=== PATIENT | male | born 1950 | race Asian ===

== ENCOUNTER 2017-02-25 16:30 | Inpatient (IN) | payer OTHER ==
[2017-02-25] VITALS (10 sets, daily range): BP systolic 113–195; BP diastolic 91–132; TEMP 97–97.7; Ht 170.2 cm; Wt 101.7 kg
[~2017-02-25] VITALS: Ht 170.2 cm; Wt 101.7 kg
[~2017-02-25 16:30] MED LIST: ASPIRIN 81 LOW81 MG PO; CARV12.5 PO; CELEXA10 MG PO; CLON0.3T7 PO; CORRECTOL100 MG PO; DILT30TA24 PO; DONE5TAB PO; HYDR100TA PO; INTEGRA PO; ISOS20TA11 PO; LIPITOR10 MG PO; NITROSTAT0.4 MG SL; SENNA-S1 TAB PO; TRAZ50TA36 PO; TUMS500 MG PO; VITAMIN D400 UNI1 PO
[2017-02-25 18:39] LABS: PLATELET COUNT 299 K/uL (142-355)
[2017-02-25] MEDS ORDERED: PROTONIX20 MG PO (23:01)
[2017-02-25] MEDS ORDERED: METAMUCIL0.52 GM OR (23:03)
[2017-02-25] MEDS ORDERED: NEURONTIN 100M100 MG OR (23:04)
[2017-02-25] MEDS ORDERED: LEXAPRO20 MG OR (23:05)
[2017-02-25] MEDS ORDERED: ABILIFY5 MG OR (23:06)
[2017-02-25] MEDS ORDERED: NAMENDA10 MG OR (23:06)
[2017-02-25] MEDS ORDERED: DIVALPROEX500 M1 OR (23:07)
[2017-02-25] MEDS ORDERED: ALUMSUS6 PO (23:08)
[2017-02-25] MEDS ORDERED: TYLENOL325 MG OR ×2 (23:09→23:12)
[2017-02-25] MEDS ORDERED: MAGNSUS68 PO (23:10)
[2017-02-25] MEDS ORDERED: LANTISEPTI2 EX (23:11)
[2017-02-25] MEDS ORDERED: ZIPR20IN IM (23:12)
[2017-02-25] MEDS ORDERED: TRAM50TA PO (23:13)
[2017-02-25] MEDS ORDERED: ARTIFI TEARS OP (23:14)
[2017-02-26] VITALS (28 sets, daily range): BP systolic 74–165; BP diastolic 46–131; TEMP 95.7–98.2
[2017-02-26 07:22] LABS: PLATELET COUNT 295 K/uL (142-355)
[2017-02-26 07:26] LABS: POTASSIUM 5.2 mmol/L (3.6-5.2)
[2017-02-27] VITALS (25 sets, daily range): BP systolic 65–177; BP diastolic 32–111; TEMP 95.4–101.4
[2017-02-27 08:34] LABS: PLATELET COUNT 311 K/uL (142-355)
[2017-02-27 10:39] LABS: POTASSIUM 6.3 mmol/L (3.6-5.2)
[2017-02-28] VITALS (22 sets, daily range): BP systolic 99–170; BP diastolic 58–119; TEMP 98.4–104.7
[2017-02-28 06:39] LABS: PLATELET COUNT 273 K/uL (142-355)
[2017-02-28 06:46] LABS: POTASSIUM 4.8 mmol/L (3.6-5.2)
[2017-03-01] VITALS (23 sets, daily range): BP systolic 66–145; BP diastolic 48–118; TEMP 97.4–98.4
[2017-03-01 06:43] LABS: PLATELET COUNT 255 K/uL (142-355)
[2017-03-01 07:27] LABS: POTASSIUM 5.1 mmol/L (3.6-5.2)
[2017-03-02] VITALS (21 sets, daily range): BP systolic 97–153; BP diastolic 50–123; TEMP 97.5–97.9
[2017-03-02 06:42] LABS: POTASSIUM 5.4 mmol/L (3.6-5.2)
[2017-03-02 09:08] LABS: PLATELET COUNT 218 K/uL (142-355)
[2017-03-03] VITALS (23 sets, daily range): BP systolic 101–160; BP diastolic 67–138; TEMP 97.2–97.9
[2017-03-03 08:02] LABS: PLATELET COUNT 189 K/uL (142-355)
[2017-03-03 08:35] LABS: POTASSIUM 4.4 mmol/L (3.6-5.2)
[2017-03-04] VITALS (11 sets, daily range): BP systolic 92–178; BP diastolic 64–101; TEMP 97.7–98
[2017-03-04 06:13] LABS: PLATELET COUNT 171 K/uL (142-355)
[2017-03-04 06:24] LABS: POTASSIUM 3.6 mmol/L (3.6-5.2)
[2017-03-05] VITALS (16 sets, daily range): BP systolic 90–1124; BP diastolic 11–105; TEMP 97–97.8
[2017-03-05 06:26] LABS: POTASSIUM 3.6 mmol/L (3.6-5.2)
[2017-03-05 06:44] LABS: PLATELET COUNT 151 K/uL (142-355)
[2017-03-06] VITALS (18 sets, daily range): BP systolic 89–149; BP diastolic 59–118; TEMP 97.6–97.8
[2017-03-06 06:34] LABS: POTASSIUM 3.7 mmol/L (3.6-5.2)
[2017-03-06 07:11] LABS: PLATELET COUNT 150 K/uL (142-355)
== END 2017-03-06 16:20 | DRG 870 ==
LOC: ICU 16:30
PROVIDERS: Emergency Medicine; ADMIT Internal Medicine
PROC: 5A1955Z Respiratory Ventilation, Greater than 96 Consecutive Hours (ICD-10-PCS; principal; 2017-02-26)
PROC: 0BH17EZ Insertion of Endotracheal Airway into Trachea, Via Natural or Artificial Opening (ICD-10-PCS; 2017-02-26)
PROC: 05HM33Z Insertion of Infusion Device into Right Internal Jugular Vein, Percutaneous Approach (ICD-10-PCS; 2017-02-28)
PROC: 5A1D00Z (ICD-10-PCS; 2017-03-02)
PROC: 30243N1 Transfusion of Nonautologous Red Blood Cells into Central Vein, Percutaneous Approach (ICD-10-PCS; 2017-03-02)
PROC: 5A1D00Z (ICD-10-PCS; 2017-03-03)
PROC: 5A1D00Z (ICD-10-PCS; 2017-03-06)
DX: A41.89 Other specified sepsis (principal); J96.02 Acute respiratory failure with hypercapnia; J15.6 Pneumonia due to other Gram-negative bacteria; J96.01 Acute respiratory failure with hypoxia; N17.8 Other acute kidney failure; I12.0 Hypertensive chronic kidney disease with stage 5 chronic kidney disease or end stage renal disease; N18.5 Chronic kidney disease, stage 5; E87.4 Mixed disorder of acid-base balance; K92.2 Gastrointestinal hemorrhage, unspecified; J90 Pleural effusion, not elsewhere classified; T17.990A Other foreign object in respiratory tract, part unspecified in causing asphyxiation, initial encounter; I95.89 Other hypotension; I48.91 Unspecified atrial fibrillation; I51.7 Cardiomegaly; T68.XXXA Hypothermia, initial encounter; N43.2 Other hydrocele; H54.8 Legal blindness, as defined in USA; R25.3 Fasciculation; I87.8 Other specified disorders of veins; D64.89 Other specified anemias
CPT/HCPCS: 31500; 36415; 36430; 36591; 36600; 51702; 80048; 80053; 80074; 80202; 81000; 82140; 82271; 82306; 82550; 82570; 82805; 82962; 83516; 83605; 83735; 83880; 83970; 83986; 84100; 84165; 84166; 84300; 84484; 84540; 85007; 85027; 85379; 86255; 86335; 86850; 86900; 86901; 86922; 87040; 87070; 87077; 87088; 87186; 87205; 93005; 94003; 94640; 94664; 94668; 94760; 96372; 96375; J0132; J0360; J1644; J1650; J1885; J1940; J1956; J2060; J2250; J2270; J2354; J2765; J2930; J3475; J3486; J3490; P9016; P9047

== ENCOUNTER 2017-03-06 16:36 | Outpatient (CLI) | payer OTHER ==
[~2017-03-06 16:36] MED LIST changes: +ABILIFY5 MG OR; +ALUMSUS6 PO; +ARTIFI TEARS OP; +DIVALPROEX500 M1 OR; +LANTISEPTI2 EX; +LEXAPRO20 MG OR; +MAGNSUS68 PO; +METAMUCIL0.52 GM OR; +NAMENDA10 MG OR; +NEURONTIN 100M100 MG OR; +PROTONIX20 MG PO; +TRAM50TA PO; +TYLENOL325 MG OR; +ZIPR20IN IM
== END 2017-03-06 18:34 | disposition short-term general hospital (02) ==
LOC: AMB 16:36
DX: A41.89 Other specified sepsis (principal); J96.02 Acute respiratory failure with hypercapnia; J15.6 Pneumonia due to other Gram-negative bacteria; J96.01 Acute respiratory failure with hypoxia; N17.8 Other acute kidney failure; I12.0 Hypertensive chronic kidney disease with stage 5 chronic kidney disease or end stage renal disease; N18.5 Chronic kidney disease, stage 5; E87.4 Mixed disorder of acid-base balance; K92.2 Gastrointestinal hemorrhage, unspecified; J90 Pleural effusion, not elsewhere classified; T17.990A Other foreign object in respiratory tract, part unspecified in causing asphyxiation, initial encounter; I95.89 Other hypotension; I48.91 Unspecified atrial fibrillation; I51.7 Cardiomegaly; T68.XXXA Hypothermia, initial encounter; N43.2 Other hydrocele; H54.8 Legal blindness, as defined in USA; R25.3 Fasciculation; I87.8 Other specified disorders of veins; D64.89 Other specified anemias
CPT/HCPCS: A0425; A0427